=== PATIENT | male | born 1935 | race Caucasian/White ===

== ENCOUNTER 2021-09-09 17:34 | Inpatient (IN) | payer MEDICARE ==
[~2021-09-09] VITALS: Ht 182.9 cm; Wt 101.6 kg
[2021-09-09] MEDS ORDERED: SODIUM CHLORIDE 0.9% 1,000 ML IV ONE (18:45)
[2021-09-09] MEDS ORDERED: MECLIZINE 25MG TABLET PO ONE (18:45)
[2021-09-09 19:06] LABS: BASOPHILS % 0.4 % (0.0-2.0); HEMATOCRIT. 39.3 % (42.0-52.0); HEMOGLOBIN. 13.4 g/dL (14.0-18.0); LYMPHOCYTES % 17.4 % (20.0-50.0); MEAN CORPUSCULAR HEMOGLOBIN 32.3 pg (28.0-32.0); MEAN CORPUSCULAR VOLUME 94.9 fL (80.0-94.0); NEUTROPHILS % 68.2 % (40.0-76.0); PLATELET 398 x1000/uL (130-400); RED BLOOD CELL COUNT 4.14 mill/uL (4.7-6.1); RED CELL DISTRIBUTION WIDTH 18.5 % (11.6-14.6)
[2021-09-09 19:11] LABS: CHLORIDE 100 mEq/L (98-107)
[2021-09-09 19:23] LABS: CLARITY URINE CLEAR (CLEAR); COLOR URINE YELLOW (YELLOW); KETONES URINE NEGATIVE (NEGATIVE); LEUKOCYTE ESTERASE URINE 1+ (NEGATIVE); NITRITE URINE NEGATIVE (NEGATIVE); OCCULT BLOOD URINE NEGATIVE (NEGATIVE); PROTEIN URINE NEGATIVE (NEGATIVE); SPECIFIC GRAVITY URINE 1.011 (1.005-1.030); UROBILINOGEN URINE 0.2 E.U./dL (0.2-1.0)
[2021-09-09 23:48] VITALS: BP 135/53
[2021-09-10] MEDS ORDERED: ZOLPIDEM TARTRATE 5MG TABLET PO PRN (00:45)
[2021-09-10] MEDS ORDERED: MECLIZINE 25MG TABLET PO PRN (00:45)
[2021-09-10] MEDS ORDERED: CLONIDINE 0.1MG TABLET PO PRN (00:45)
[2021-09-10] MEDS ORDERED: ONDANSETRON HCL 4MG/2ML INJ IV PRN (00:45)
[2021-09-10] MEDS ORDERED: ACETAMINOPHEN 325MG TABLET PO PRN ×2 (00:45)
[2021-09-10] MEDS ORDERED: ENOXAPARIN 40MG/0.4ML SYR SUBCUT SCH (00:45)
[2021-09-10] MEDS ORDERED: DIPHENHYDRAMINE 50MG/ML VIAL IV PRN (00:45)
[2021-09-10] MEDS ORDERED: BIMA2.5D4 EACHEYE (01:19)
[2021-09-10] MEDS ORDERED: DORZ1DRO7 OP (01:19)
[2021-09-10] MEDS ORDERED: ROSU5TAB MT (01:19)
[2021-09-10] MEDS ORDERED: ASPI-1497 PO (01:19)
[2021-09-10 04:00] VITALS: BP 154/72
[2021-09-10] MEDS: SODIUM CHLORIDE 0.9% INJ 3ML FLUSH IVF SCH ×2 (06:00→13:25)
[2021-09-10 08:00] VITALS: BP 152/84
[2021-09-10] MEDS ORDERED: ASPIRIN 81MG EC TABLET PO SCH (09:00)
[2021-09-10] MEDS ORDERED: ENOXAPARIN 30MG/0.3ML SYR SUBCUT SCH (09:00)
[2021-09-10 12:00] VITALS: BP 146/51
[2021-09-10 15:48] VITALS: BP 139/70
[2021-09-10 17:30] VITALS: BP 139/70
[2021-09-10] MEDS ORDERED: ATORVASTATIN CALCIUM 20MG TABLET PO SCH (21:00)
== END 2021-09-10 19:35 | disposition home or self-care (01) | DRG 69 ==
LOC: ER 17:34 → 6WST 21:53 → EDBEDREQ 21:57 → EDBEDREQTM 21:57 → ENRESERV 22:56
PROVIDERS: ADMIT Internal Medicine; ATTEND Internal Medicine
DX: G45.9 Transient cerebral ischemic attack, unspecified (principal); E78.00 Pure hypercholesterolemia, unspecified; R27.0 Ataxia, unspecified; I10 Essential (primary) hypertension; Z83.3 Family history of diabetes mellitus; Z87.891 Personal history of nicotine dependence; Z79.899 Other long term (current) drug therapy; I69.30 Unspecified sequelae of cerebral infarction
CPT/HCPCS: 36415; 70551; 80053; 81003; 84484; 85025; 97162; 99285; J1650; J7030; J8597

== ENCOUNTER 2024-11-21 15:11 | Emergency (ER) | payer MEDICARE ==
[~2024-11-21] VITALS: Ht 182.9 cm; Wt 90.0 kg
[~2024-11-21 15:11] MED LIST: ASPI-1497 PO; BIMA2.5D4 EACHEYE; DORZ1DRO7 OP; ROSU5TAB MT
[2024-11-21 15:13] VITALS: TEMP 99.3; O2SAT 97
[2024-11-21] MEDS: SODIUM CHLORIDE 0.9% 1,000 ML IV ONE (15:51)
[2024-11-21] MEDS: ONDANSETRON HCL 4MG/2ML INJ IV STA (15:52)
[2024-11-21 16:21] LABS: BASOPHILS % 0.3 % (0.0-2.0); DIFFERENTIAL COMMENT 0; EOSINOPHILS % 0.2 % (0.0-5.0); HEMATOCRIT. 35.4 % (42.0-52.0); LYMPHOCYTES % 11.6 % (20.0-50.0); MEAN CORPUSCULAR HEMOGLOBIN 33.2 pg (28.0-32.0); MEAN CORPUSCULAR HGB CONC 33.9 g/dL (31.0-37.0); MEAN CORPUSCULAR VOLUME 98.1 fL (80.0-94.0); MEAN PLATELET VOLUME 7.9 fl (7.4-10.4); MONOCYTES % 11.7 % (2.0-8.0); NEUTROPHILS % 76.2 % (40.0-76.0); PLATELET 327 x1000/uL (130-400); RED BLOOD CELL COUNT 3.61 mill/uL (4.7-6.1); RED CELL DISTRIBUTION WIDTH 20.4 % (11.6-14.6); WHITE BLOOD COUNT 4.7 x1000/uL (4.5-11.0)
[2024-11-21 16:26] LABS: CHLORIDE 105 mEq/L (98-107); POTASSIUM 3.9 mEq/L (3.5-5.1); SODIUM 136 mEq/L (136-145)
[2024-11-21 16:27] LABS: CARBON DIOXIDE 21 mEq/L (21-32)
[2024-11-21 16:28] LABS: CALCIUM 8.8 mg/dL (8.7-10.4)
[2024-11-21 16:32] LABS: CREATININE 0.8 mg/dL (0.6-1.3); GLUCOSE 125 mg/dL (70-105); UREA NITROGEN BLOOD 17 mg/dL (9-23)
[2024-11-21 16:33] LABS: PARTIAL THROMBOPLASTIN TIME 26.1 sec (23.4-31.0); PROTHROMBIN TIME 11.6 sec (9.6-11.0)
[2024-11-21 16:35] LABS: TROPONIN I HIGH SENSITIVITY < 4 ng/L (3.0-53)
[2024-11-21 17:59] VITALS: BP 135/60; PULSE 70; RESP 15; O2SAT 98
== END 2024-11-21 19:33 | disposition home or self-care (01) ==
LOC: ER 15:11
DX: R11.2 Nausea with vomiting, unspecified (principal); R55 Syncope and collapse; I10 Essential (primary) hypertension; F10.90 Alcohol use, unspecified, uncomplicated; Z79.899 Other long term (current) drug therapy; Z86.73 Personal history of transient ischemic attack (TIA), and cerebral infarction without residual deficits; Z95.0 Presence of cardiac pacemaker; Y90.9 Presence of alcohol in blood, level not specified
CPT/HCPCS: 99285; 96374; 71045; 96361; 80048; 83880; 85025; 85610; 85730; 84484; 36415; 93005; J2405; J7030